=== PATIENT | female | born 1985 | race African-American/Black ===

== ENCOUNTER 2017-03-20 16:39 | Emergency (ER) | payer OTHER ==
[~2017-03-20] VITALS: Ht 170.2 cm; Wt 97.0 kg
[~2017-03-20 16:39] MED LIST: AMOXICILLIN/CL875 MG PO; ANAPROX275 MG PO; CLEOCIN300 MG PO; DIFLUCAN150 MG PO; ERY-TAB333 MG OR; FIORICET PO; FLEXERIL PO; FLONASE NASAL50 MCG; GOLYTELY4000 ML PO; LORTAB 1010 MG PO; LORTAB5 PO; MACRODANTIN100 MG OR; MEDDOSEPAK PO; MUCINEX600 MG PO; MULTI VITAMN OR; MULTIVITAMIN PO; NAPROSYN500 MG PO; NO; ORTHO TRI- OR; PRE-NATAL OR; PRILOSEC20 MG OR; PROMETHAZINE25 MG OR; RELENZA IN; ULTRAM50 M1 PO; ZITHROMAX250 MG PO; ZITHROMAX500 MG PO
[2017-03-20] MEDS ORDERED: MOTRIN800 MG PO (17:01)
[2017-03-20 17:35] VITALS: BP 122/78
== END 2017-03-20 17:35 | disposition home or self-care (01) | DRG 605 ==
LOC: ED 16:39
DX: S80.01XA Contusion of right knee, initial encounter (principal); W01.0XXA Fall on same level from slipping, tripping and stumbling without subsequent striking against object, initial encounter; Y93.89 Activity, other specified; Y92.89 Other specified places as the place of occurrence of the external cause

== ENCOUNTER 2017-08-11 06:11 | Observation (INO) | payer OTHER ==
[~2017-08-11] VITALS: Ht 170.2 cm; Wt 92.2 kg
[~2017-08-11 06:11] MED LIST changes: +MOTRIN800 MG PO
[2017-08-11 07:41] LABS: HEMATOCRIT 43.4 % (37.0-47.0); HEMOGLOBIN 14.4 g/dl (12.0-16.0); IMMATURE GRANULOCYTES 0.4 % (0.0-1.0); MEAN CELL VOLUME 87.5 fL CALC (80.0-100.0); MEAN CORPUSCULAR HGB CONC 33.2 g/L CALC (32.0-36.0); NEUT# 3.41 thou/uL (2.00-7.15); RED BLOOD COUNT 4.96 mill/uL (4.20-5.60)
[2017-08-11 07:57] LABS: ANION GAP 13 (6-22 (CALC)); BUN 7 mg/dL (7-17); BUN/CREATININE RATIO 8 (12-20 (CALC)); CALCIUM 9.5 mg/dL (8.4-10.2); CALCULATED LDLCHOLESTEROL 105 mg/dL (62-129 (CALC)); CARBON DIOXIDE 26 mmol/l (22-30); CHLORIDE 109 mmol/l (95-108); CHOLESTEROL HDL RATIO 3.1 (<4.4 (CALC)); CREATININE 0.9 mg/dL (0.5-1.0); GFR > 60 ML/MIN (>=60 (CALC)); GFR FOR AFR.AMER. > 60 ML/MIN (>=60 (CALC)); GLUCOSE 88 mg/dL (65-105); HDL CHOLESTEROL 57 mg/dL (>=40); POTASSIUM 4.3 mmol/l (3.5-5.1); SODIUM 143 mmol/l (137-146); TOTAL CHOLESTEROL 175 mg/dl (0-199); TRIGLYCERIDES REFLEX TO dLDL 70 mg/dl (30-149); VLDL CHOLESTROL 14 mg/dl (1-41 (CALC))
[2017-08-11 08:27] LABS: TSH, 3RD GENERATION 1.11 uIU/mL (0.47 - 4.68)
[2017-08-11 11:01] VITALS: BP 108/70
[2017-08-11] MEDS ORDERED: NAPROSYN500 MG PO (12:40)
== END 2017-08-11 14:13 | disposition home or self-care (01) | DRG 206 ==
LOC: ED 06:11 → ED-I 09:33 → ED 09:44 → MS2 09:45
PROVIDERS: Family Medicine; ADMIT Internal Medicine; ATTEND Internal Medicine
DX: M94.0 Chondrocostal junction syndrome [Tietze] (principal); Z82.49 Family history of ischemic heart disease and other diseases of the circulatory system
CPT/HCPCS: G0378